=== PATIENT | male | born 1960 | race Two or more races ===

== ENCOUNTER 2020-06-30 08:00 | Outpatient (CLI) | payer BC ==
--- NOTE | 2020-06-30 16:55 | XRAY Report ---
PROCEDURE: Wrist 3 View RT INDICATIONS: SPRAIN OF RADIOCARPAL JOINT OF RIGHT WRIST TECHNIQUE: 3 views of the wrist were acquired. COMPARISON: None FINDINGS: Bones: On the lateral image, there is an apparent fracture fragment seen dorsally, with irregular mar gins measuring 5 mm. No suspicious bony lesions. Remote postoperative changes can be seen of the distal aspects of the fourth and fifth metacarpals. Soft tissues: No suspicious soft tissue calcifications. IMPRESSION: An apparent fracture fragment is seen along the dorsal wrist, without the fractured carpal bone ident ified, although it may be related to the triquetrum. When clinically appropriate, a dedicated wrist CT is recommended, if clinically appropriate. Remote postoperative change of the distal fourth and fifth metacarpals can be seen. Reviewed by: Isaak El MD on 06/30/2020 3:54 PM [facility] Approved by: Isaak El MD on 06/30/2020 3:54 PM [facility] Station ID: [id number]
== END 2020-06-30 23:59 ==
LOC: DI.S 08:00
PROVIDERS: ATTEND Emergency Medicine
DX: R93.6 Abnormal findings on diagnostic imaging of limbs (principal)

== ENCOUNTER 2020-07-03 14:06 | Outpatient (CLI) | payer BC ==
--- NOTE | 2020-07-03 15:07 | CT Report ---
PROCEDURE: UPPER EXTREMITY WO - RT INDICATIONS: UNSPEC FRACTURE OF RT WRIST TECHNIQUE: Noncontrast 3 mm axial sections acquired of the right wrist, with coronal and sagittal reformats. COMPARISON: Right wrist radiographs 06/30/2020 FINDINGS: Image quality: Excellent. Bones: A small minimally displaced and mildly comminuted fracture is seen at the dorsum of the triqu etrum, corresponding to the radiographic abnormality seen on 06/30/2020. No additional fracture is id entified in the remainder of the wrist. Chronic postsurgical changes are seen in the distal fourth an d fifth metacarpals. Chronic appearing osseous irregularity at the radial aspect of the first metacar pal head/neck is likely related to prior trauma. Soft tissues: Soft tissue calcifications are seen in the thumb that are of uncertain etiology and ma y be related to prior trauma versus other causes of soft tissue calcifications. IMPRESSION: 1. Minimally displaced and mildly comminuted fracture at the dorsal aspect of the triquetrum. No add itional carpal fracture is seen. 2. Chronic postsurgical changes at the distal fourth and fifth metacarpals. 3. Cortical irregularity at the radial aspect of the second metacarpal and soft tissue calcification s within the thumb are nonspecific, but most likely related to remote prior trauma. Reviewed by: Chavez Umanzor MD on 07/03/2020 3:06 PM PST Approved by: Chavez Umanzor MD on 07/03/2020 3:06 PM PST Station ID: [id number]
== END 2020-07-03 14:07 | disposition home or self-care (01) ==
LOC: DI 14:06
PROVIDERS: ATTEND Emergency Medicine
DX: S62.111A Displaced fracture of triquetrum [cuneiform] bone, right wrist, initial encounter for closed fracture (principal)

== ENCOUNTER 2020-07-12 15:32 | Outpatient (CLI) | payer BC ==
--- NOTE | 2020-07-13 09:20 | XRAY Report ---
PROCEDURE: Wrist 3 View LT INDICATIONS: L WRIST PX TECHNIQUE: 3 views of the wrist were acquired. COMPARISON: None FINDINGS: Bones: Cortical irregularity involving dorsal aspect of distal carpal row is seen which may indicate a fracture involving dorsal aspect of hamate, suggest clinical correlation. No suspicious bony lesio ns. Scaphoid view: Scaphoid is intact. Soft tissues: No suspicious soft tissue calcifications. IMPRESSION: Finding is concerning for a slightly displaced fracture involving dorsal aspect of distal carpal bone possibly involving hamate suggest clinical correlation. This can be further evaluated with CT of lef t wrist. Reviewed by: Chandana Beebe MD on 07/13/2020 9:19 AM PST Approved by: Chandana Beebe MD on 07/13/2020 9:19 AM PST Station ID: [id number]
== END 2020-07-12 23:59 | disposition home or self-care (01) ==
LOC: DI.N 15:32
PROVIDERS: ATTEND Orthopaedic Surgery
DX: M25.532 Pain in left wrist (principal)

== ENCOUNTER 2020-08-23 07:00 | Outpatient (CLI) | payer BC ==
--- NOTE | 2020-08-23 15:58 | XRAY Report ---
PROCEDURE: Wrist 3 View BILAT INDICATIONS: L WRIST PX, DISPLACED FX OF R TRIQUETRUM TECHNIQUE: 3 views of the wrist were acquired. COMPARISON: Left wrist 07/13/2020, right wrist 06/30/2020 FINDINGS: Bones: Postsurgical changes are present within the left fourth and fifth metacarpals. There is good a natomic alignment. No suspicious bony lesions. Previously noted fracture fragment identified on the lateral view of the right hand immediately dorsal to the capitate is again noted, unchanged. Soft tissues: No suspicious soft tissue calcifications. IMPRESSION: 1. Postsurgical left fourth and fifth metacarpal changes. 2. Persistent fracture fragment identified immediately dorsal to the capitate on lateral view of the right wrist. Overall appearance is suggestive of fracture. Reviewed by: Vanesa Lopez MD on 08/23/2020 3:57 PM PST Approved by: Vanesa Lopez MD on 08/23/2020 3:57 PM PST Station ID: [id number]
== END 2020-08-23 23:59 | disposition home or self-care (01) ==
LOC: DI.N 07:00
PROVIDERS: ATTEND Physician Assistant
DX: M25.532 Pain in left wrist (principal); S62.111A Displaced fracture of triquetrum [cuneiform] bone, right wrist, initial encounter for closed fracture

== ENCOUNTER 2021-10-23 17:23 | Outpatient (CLI) | payer BC, OTHER ==
[2021-10-23 20:12] LABS: BASOPHILS % (AUTO) 0.6 %; EOSINOPHILS % (AUTO) 0.6 %; HCT - HEMATOCRIT 41.3 % (42.0-52.0); HGB - HEMOGLOBIN 13.9 g/dL (14.0-18.0); LYMPHOCYTES # (AUTO) 2.2 10^3/uL (1.5-3.5); LYMPHOCYTES % (AUTO) 32.7 %; MEAN CORPUSCULAR HGB CONC 33.7 g/dL (32.0-36.0); MEAN CORPUSCULAR VOLUME 92.2 fL (80.0-94.0); MEAN PLATELET VOLUME 10.7 fL (7.4-11.4); MONOCYTES # (AUTO) 0.6 10^3/uL (0.0-1.0); MONOCYTES % (AUTO) 9.1 %; NEUTROPHILS # (AUTO) 3.8 10^3/uL (1.5-6.6); NEUTROPHILS % (AUTO) 56.7 %; PLT - PLATELET COUNT 225 10^3/uL (130-450); RED BLOOD COUNT 4.48 10^6/uL (4.70-6.10); RED CELL DISTRIBUTION WIDTH 12.6 % (12.0-15.0); WHITE BLOOD COUNT 6.6 x10^3/uL (4.8-10.8)
[2021-10-23 20:36] LABS: ALBUMIN/GLOBULIN RATIO 1.5 (1.0-2.2); ALKALINE PHOSPHATASE 50 IU/L (42-121); ALT ALANINE AMINOTRANSFERASE 60 IU/L (10-60); AST ASPARTATE AMINOTRANSFERASE 34 IU/L (10-42); BILIRUBIN,TOTAL 0.5 mg/dL (0.2-1.0); BUN - BLOOD UREA NITROGEN 18 mg/dL (6-20); CALCIUM 9.2 mg/dL (8.5-10.3); CARBON DIOXIDE - CO2 26 mmol/L (21-32); CHLORIDE 102 mmol/L (101-111); CHOL/HDL RATIO 3.8 (<5.0); CHOLESTEROL 217 mg/dL; CREATININE 0.9 mg/dL (0.6-1.2); GFR - MDRD 86 (>89); GLUCOSE 81 mg/dL (70-100); HDL CHOLESTEROL 57 mg/dL; LDL CHOLESTEROL,CALCULATED 133 mg/dL; LDL/HDL RATIO 2.3 (<3.6); SODIUM 138 mmol/L (135-145); TOTAL PROTEIN 6.7 g/dL (6.7-8.2); TRIGLYCERIDES 135 mg/dL; VLDL CHOLESTEROL 27 mg/dL
[2021-10-23 20:50] LABS: THYROID STIMULATING HORMONE 1.61 uIU/mL (0.34-5.60)
== END 2021-10-23 17:24 | disposition home or self-care (01) ==
LOC: LAB.S 17:23
PROVIDERS: ATTEND Registered Nurse
DX: R53.83 Other fatigue (principal); Z87.310 Personal history of (healed) osteoporosis fracture; Z12.5 Encounter for screening for malignant neoplasm of prostate; F52.32 Male orgasmic disorder; Z13.6 Encounter for screening for cardiovascular disorders
CPT/HCPCS: 36415; 80053; 80061; 82306; 83721; 84153; 84403; 84443; 85025

== ENCOUNTER 2021-10-31 10:59 | Outpatient (CLI) | payer BC, OTHER ==
--- NOTE | 2021-10-31 13:24 | DEXA Report ---
PROCEDURE: Dexa Spine and/or Hip INDICATIONS: HIST OF OSTEOPOROSIS FX TECHNIQUE: Dual energy x-ray absorptiometry (DXA) was performed on a [employer] System. Regions measur ed are the AP Spine, femoral neck, and if needed forearm. COMPARISON: None. FINDINGS: Lumbar Spine: Bone Mineral Density 1.054 g/cm/cm,T score -1.4. Left Hip: Bone Mineral Density 1.001 g/cm/cm,T score -0.7. Left Femoral Neck: Bone Mineral Density 0.881 g/cm/cm, T score -1.5. (T score greater or equal to -1.0: NORMAL) (T score from -1.1 to -2.4: OSTEOPENIA) (T score less than or equal to -2.5 to: OSTEOPOROSIS) Impression: Osteopenia. Patients with diagnosis of osteoporosis or osteopenia should have regular bone mineral density assess ment. For those eligible for Medicare, routine testing is allowed once every 2 years. Testing frequ ency can be increased for patients who have rapidly progressing disease or for those who are receivin g medical therapy to restore bone mass. Reviewed by: Chandana Beebe MD on 10/31/2021 1:22 PM PDT Approved by: Chandana Beebe MD on 10/31/2021 1:22 PM PDT Station ID: [id number]
== END 2021-10-31 11:00 | disposition home or self-care (01) ==
LOC: DI 10:59
PROVIDERS: ATTEND Registered Nurse
DX: Z87.310 Personal history of (healed) osteoporosis fracture (principal); M85.89 Other specified disorders of bone density and structure, multiple sites

== ENCOUNTER 2022-11-28 13:34 | Outpatient (CLI) | payer BC ==
[2022-11-28 19:58] LABS: ALBUMIN 4.2 g/dL (3.2-5.5); ALBUMIN/GLOBULIN RATIO 1.3 (1.0-2.2); CALCIUM 9.1 mg/dL (8.5-10.3); CREATININE 0.9 mg/dL (0.6-1.2); POTASSIUM 4.1 mmol/L (3.5-5.0); TOTAL PROTEIN 7.4 g/dL (6.7-8.2)
[2022-11-28 20:04] LABS: CHOL/HDL RATIO 3.6 (<5.0); CHOLESTEROL 242 mg/dL; HDL CHOLESTEROL 68 mg/dL; LDL CHOLESTEROL,CALCULATED 157 mg/dL; LDL/HDL RATIO 2.3 (<3.6); TRIGLYCERIDES 85 mg/dL; VLDL CHOLESTEROL 17 mg/dL
[2022-11-28 20:13] LABS: THYROID STIMULATING HORMONE 1.62 uIU/mL (0.34-5.60)
== END 2022-11-28 13:35 | disposition home or self-care (01) ==
LOC: LAB.S 13:34
PROVIDERS: ATTEND Registered Nurse
DX: M85.80 Other specified disorders of bone density and structure, unspecified site (principal); Z12.5 Encounter for screening for malignant neoplasm of prostate; Z13.6 Encounter for screening for cardiovascular disorders
CPT/HCPCS: 36415; 80053; 80061; 82306; 83721; 84153; 84443

== ENCOUNTER 2023-08-03 08:35 | Day surgery (SDC) | payer BC ==
[2023-08-03] MEDS ORDERED: LACTATED RINGERS 1,000 ML IV ONE ×2 (08:48→10:23)
--- NOTE | 2023-08-03 09:32 | ANESTHESIA ---
Pre-Anesthesia VS, & Labs - Diagnosis screening - Procedure colonoscopy Vital Signs: Temp Pulse Resp BP Pulse Ox O2 Flow Rate 36.4 C L 65 16 144/71 H 98 0 08/03/23 08:49 08/03/23 08:49 08/03/23 08:49 08/03/23 08:49 08/03/23 08:49 08/03/23 08:49 Height: 5 ft 8 in Weight (kg): 75.2 kg Body Mass Index: 25.2 BMI Classification: Overweight - NPO Last Fluid Intake: am prep Home Medications and Allergies Home Medications: Ambulatory Orders Mepolizumab [Nucala] 100 mg IM 07/31/23 Zolpidem [Ambien] 5 mg PO DAILY 07/31/23 Mepolizumab [Nucala] 100 mg IM 07/31/23 Zolpidem [Ambien] 5 mg PO DAILY 07/31/23 Allergies/Adverse Reactions: Allergies Allergy/AdvReac Type Severity Reaction Status Date / Time No Known Drug Allergies Allergy Verified 07/31/23 13:46 Anes History & Medical History - Anesthetic History Anesthesia Complications: reports: No previous complications Family history of Anesthesia Complications: Denies Family history of Malignant Hyperthermia: Denies - Medical History Cardiovascular: reports: Arrhythmia Pulmonary: reports: Asthma Gastrointestinal: reports: GERD Urinary: reports: None Musculoskeletal: reports: Osteoarthritis Endocrine/Autoimmune: reports: None Skin: reports: None Psychosocial: reports: Alcohol (social) History of Cancer?: No - Surgical History General: reports: Colonoscopy Eyes Ears Nose Throat (EENT): reports: Other Orthopedic: reports: Other Exam General: Alert, Oriented x3, Cooperative Dental: WNL Mouth Openin Fingerbreadth Neck Mobility: Normal Mallampati classification: II Thyromental Distance: 4-6 cm Respiratory: Lungs clear, Normal breath sounds, No respiratory distress Cardiovascular: Regular rate (regularly irregular. Sinus) Neurological: Normal speech Mental/Cognitive Status: Alert/Oriented X3, Normal for patient Cognitive Status: Within normal limits Plan Anesthesia Type: General, Total IV Consent for Procedure(s) Verified and Reviewed: Yes Code Status: Attempt Resuscitation ASA classification: 2-Mild systemic disease Is this case an emergency?: No
[2023-08-03] MEDS ORDERED: PROPOFOL 500 MG/50 ML 500 MG/50 ML VIAL ONE (09:39)
[2023-08-03] MEDS ORDERED: ONDANSETRON 4 MG/2 ML VIAL ONE (10:19)
[2023-08-03 10:53] VITALS: BP 140/80; O2SAT 97
--- NOTE | 2023-08-03 11:25 | ANESTHESIA POST OP EVALUATION ---
Anesthesia Post Eval - Post Anesthesia Eval Vitals: Last Vital Signs Temp 36.4 C L 08/03/23 10:45 Pulse 61 08/03/23 10:45 Resp 16 08/03/23 10:45 BP 140/80 H 08/03/23 10:45 Pulse Ox 97 08/03/23 10:45 O2 Flow Rate 0 08/03/23 08:49 CV Function Including HR & BP: Stable Pain Control: Satisfactory Nausea & Vomiting: Negative Mental Status: Baseline Respiratory Status: Airway Patent Hydration Status: Satisfactory Anesthesia Complications: None
== END 2023-08-03 08:36 | disposition home or self-care (01) ==
LOC: SDS 08:35
PROVIDERS: ATTEND Surgery
DX: Z12.11 Encounter for screening for malignant neoplasm of colon (principal); K64.1 Second degree hemorrhoids; J45.909 Unspecified asthma, uncomplicated
CPT/HCPCS: 45378; J7120